=== PATIENT | female | born 1960 | race Caucasian/White ===

== ENCOUNTER 2020-05-19 08:49 | Emergency (ER) | payer MEDICARE ==
[~2020-05-19] VITALS: Ht 167.6 cm; Wt 64.0 kg
[2020-05-19] MEDS ORDERED: ORPHENADRINE CITRATE 60 MG/2 ML VIAL. IM ONE (09:30)
--- NOTE | 2020-05-19 10:10 | RAD ---
CT lumbar spine without contrast dated 05/19/2020. No comparison available. CLINICAL INDICATION: Pain. TECHNIQUE: Contiguous axial imaging of lumbar spine performed with thin cut coronal and sagittal reconstruction. One or more of the following individualized dose reduction techniques were utilized for this examinat ion: 1. Automated exposure control 2. Adjustment of the mA and/or kV according to patient size 3. Use of iterative reconstruction technique. FINDINGS: Sagittal alignment is anatomic. Vertebral body heights are maintained. Posterior elements are intact. No evidence of fracture. Mild endplate hypertrophic changes throughout. There is mild arthropathy of the lower lumbar apophyse al joints. Minimal broad-based bulging at L2-L3, L3-L4, L4-L5 and L5-S1. No focal disc herniation. Th e bony canal and foramen are adequate. Images of the retroperitoneum show mild ectasia of the infrarenal abdominal aorta measuring up to 2.6 cm transverse. There are diffuse atherosclerotic calcifications. Postsurgical changes of the right c olon. IMPRESSION: 1. No evidence of fracture or malalignment. 2. Mild lower lumbar spondylosis. Electronically signed by: Troy Hart MD (05/19/2020 10:08 AM) [id number]
[2020-05-19 10:24] LABS: BASO % 1 % (0-3); EOS # 0.1 x10^3/uL (0.0-0.7); EOS % 2 % (0-3); HEMATOCRIT 38.2 % (36.0-47.0); HEMOGLOBIN 12.5 g/dL (12.0-15.5); LYMPH % 37 % (24-48); MEAN CORPUSCULAR HEMOGLOBIN 31 pg (25-35); MEAN CORPUSCULAR HGB CONC 33 g/dL (31-37); MEAN CORPUSCULAR VOLUME 94 fL (79-100); MONO # 0.4 x10^3/uL (0.0-1.1); MONO % 8 % (0-9); NEUT # 2.8 x10^3uL (1.8-7.7); NEUT % 52 % (31-73); PLATELET COUNT 224 x10^3/uL (140-400); RED BLOOD COUNT 4.07 x10^6/uL (3.50-5.40); RED CELL DISTRIBUTION WIDTH 13.3 % (11.5-14.5); WHITE BLOOD COUNT 5.4 x10^3/uL (4.0-11.0)
[2020-05-19 10:36] LABS: CALCIUM 8.6 mg/dL (8.5-10.1); CREATININE 0.9 mg/dL (0.6-1.0); GFR 63.7; POTASSIUM 3.9 mmol/L (3.5-5.1)
[2020-05-19 10:42] LABS: ALBUMIN/GLOBULIN RATIO 0.9 (1.0-1.7); TOTAL BILIRUBIN 0.1 mg/dL (0.2-1.0); TOTAL PROTEIN 6.3 g/dL (6.4-8.2)
[2020-05-19 11:40] LABS: BILIRUBIN,URINE NEG (NEG); CLARITY,URINE CLEAR; COLOR,URINE STRAW; GLUCOSE,URINE NEG (NEG); NITRITE,URINE NEG (NEG); UROBILINOGEN,URINE 0.2 mg/dL (0.2 mg/dL)
[2020-05-19 11:41] LABS: BACTERIA,URINE FEW /HPF (0-FEW); RBC,URINE OCC /HPF (0-2); SQUAMOUS EPITHELIAL CELL,UR MANY /LPF; WBC,URINE OCC /HPF (0-4)
[2020-05-19] MEDS ORDERED: IOHEXOL 300 MG/ML 75 ML VIAL. IV ONE (11:45)
--- NOTE | 2020-05-19 12:19 | PHYS DOC ---
Past History Past Medical History: No Pertinent History Past Surgical History: Appendectomy, Hysterectomy, Other Additional Past Surgical Histo: Knee surgery, Colon surgery, Elbow surgery. Alcohol Use: None General Adult EDM: Chief Complaint: HIP PAIN HPI: HPI: Patient is a 59-year-old female coming in for left back pain rating down to her left hip and left leg. Describes the pain as burning. Says pain has been present since March and has been steadily getting worse. Is been taking ibuprofen without improvement. Patient states the pain started when she was pushing some heavy carts at her job in [place] when the pain started. It was exacerbated by walking around for most of the day. Denies any bowel or bladder dysfunction, urinary incontinence, fevers, recent weight loss, chills or diaphoresis. Patient states on occasion her leg is felt like it was swollen but the swelling comes and goes. Has not been seen before for this. Denies any history of prior chronic back pain. Denies any paresthesias in her lower extremities. Review of Systems: Review of Systems: All other systems within normal limits except for as noted in the HPI Current Medications: Current Meds: Current Medications Medications (Trade) Dose Ordered Sig/Paulo Start Time Stop Time Status Last Admin Dose Admin Fentanyl Citrate (Fentanyl 2ml Vial) 75 mcg 1X ONCE 05/19/20 11:45 05/19/20 12:00 DC 05/19/20 11:50 75 MCG Iohexol (Omnipaque 300 Mg/ml) 75 ml 1X ONCE 05/19/20 11:45 05/19/20 11:46 DC 05/19/20 11:59 75 ML Orphenadrine Citrate (Norflex) 60 mg 1X ONCE 05/19/20 09:30 05/19/20 10:47 DC 05/19/20 10:40 60 MG Allergies: Allergies: Allergies Coded Allergies Type Severity Reaction Last Updated Verified Sulfa (Sulfonamide Antibiotics) Allergy Unknown 05/19/20 Yes cephalexin Allergy Unknown 05/19/20 Yes ketorolac Allergy Unknown 05/19/20 Yes morphine Allergy Unknown 05/19/20 Yes Physical Exam: PE: Constitutional: Well developed, well nourished, no acute distress, non-toxic appearance. [] HENT: Normocephalic, atraumatic, bilateral external ears normal, nose normal. [] Eyes: PERRLA, conjunctiva normal, no discharge. [] Neck: No rigidity, supple, no stridor. [] Cardiovascular: Regular rate and rhythm, brisk cap refill, palpable DP pulses [] Lungs & Thorax: Non labored symmetric respirations, no tachypnea or respiratory distress [] Abdomen: Soft, nondistended. Skin: Warm, dry, no erythema, no rash. [] Back: No step-offs or deformities, tenderness over left lower back and iliac crest, negative straight leg raise exam. Extremities: No deformities, range of motion grossly intact, no lower extremity edema [] Neurologic: Alert and oriented X 3, no focal deficits noted. [] Psychologic: Affect normal, judgement normal, mood normal. [] Current Patient Data: Labs: Laboratory Tests Test 05/19/20 10:09 05/19/20 11:00 White Blood Count 5.4 x10^3/uL (4.0-11.0) Red Blood Count 4.07 x10^6/uL (3.50-5.40) Hemoglobin 12.5 g/dL (12.0-15.5) Hematocrit 38.2 % (36.0-47.0) Mean Corpuscular Volume 94 fL (79-100) Mean Corpuscular Hemoglobin 31 pg (25-35) Mean Corpuscular Hemoglobin Concent 33 g/dL (31-37) Red Cell Distribution Width 13.3 % (11.5-14.5) Platelet Count 224 x10^3/uL (140-400) Neutrophils (%) (Auto) 52 % (31-73) Lymphocytes (%) (Auto) 37 % (24-48) Monocytes (%) (Auto) 8 % (0-9) Eosinophils (%) (Auto) 2 % (0-3) Basophils (%) (Auto) 1 % (0-3) Neutrophils # (Auto) 2.8 x10^3uL (1.8-7.7) Lymphocytes # (Auto) 2.0 x10^3/uL (1.0-4.8) Monocytes # (Auto) 0.4 x10^3/uL (0.0-1.1) Eosinophils # (Auto) 0.1 x10^3/uL (0.0-0.7) Basophils # (Auto) 0.0 x10^3/uL (0.0-0.2) D-Dimer (Juju) 0.99 mg/L (0.00-0.50) H Sodium Level 141 mmol/L (136-145) Potassium Level 3.9 mmol/L (3.5-5.1) Chloride Level 106 mmol/L (98-107) Carbon Dioxide Level 24 mmol/L (21-32) Anion Gap 11 (6-14) Blood Urea Nitrogen 13 mg/dL (7-20) Creatinine 0.9 mg/dL (0.6-1.0) Estimated GFR (Cockcroft-Gault) 63.7 BUN/Creatinine Ratio 14 (6-20) Glucose Level 90 mg/dL (70-99) Calcium Level 8.6 mg/dL (8.5-10.1) Total Bilirubin 0.1 mg/dL (0.2-1.0) L Aspartate Amino Transferase (AST) 15 U/L (15-37) Alanine Aminotransferase (ALT) 22 U/L (14-59) Alkaline Phosphatase 68 U/L (46-116) Total Protein 6.3 g/dL (6.4-8.2) L Albumin 3.0 g/dL (3.4-5.0) L Albumin/Globulin Ratio 0.9 (1.0-1.7) L Urine Collection Type Void Urine Color Straw Urine Clarity Clear Urine pH 5.5 Urine Specific [place] 1.015 Urine Protein Neg (NEG-TRACE) Urine Glucose (UA) Neg mg/dL (NEG) Urine Ketones (Stick) Neg mg/dL (NEG) Urine Blood Small (NEG) Urine Nitrite Neg (NEG) Urine Bilirubin Neg (NEG) Urine Urobilinogen Dipstick 0.2 mg/dL (0.2 mg/dL) Urine Leukocyte Esterase Neg (NEG) Urine RBC Occ /HPF (0-2) Urine WBC Occ /HPF (0-4) Urine Squamous Epithelial Cells Many /LPF Urine Bacteria Few /HPF (0-FEW) Vital Signs: Vital Signs Date Time Temp Pulse Resp B/P (MAP) Pulse Ox O2 Delivery O2 Flow Rate FiO2 05/19/20 11:50 18 96 05/19/20 08:55 97.7 86 100/62 (75) Room Air EKG: EKG: [] Radiology/Procedures: Radiology/Procedures: CTA abdomen and pelvis dated 05/19/2020. No comparison available. CLINICAL INDICATION: Flank pain. TECHNIQUE: Contiguous axial imaging of the abdomen pelvis performed following the intravenous administration of 78 cc Isovue-370. Study was performed as dedicated CTA with thin cut coronal MIPS 3-D reconstruction. One or more of the following individualized dose reduction techniques were utilized for this examination: 1. Automated exposure control 2. Adjustment of the mA and/or kV according to patient size 3. Use of iterative reconstruction technique FINDINGS: Contrast bolus is adequate. Abdominal aorta is normal in caliber. There is multifocal calcific and soft plaque throughout. There is resultant moderate narrowing of the distal aorta just proximal to the aortic bifurcation. There is also mild narrowing of the bilateral common iliac arteries due to calcific plaquing. Mild narrowing of the bilateral internal iliac artery origins. Celiac artery and SMA are patent. Mild narrowing of the bilateral renal artery origins. RAMÓN is not identified and may be chronically occluded. Liver is homogeneous. No biliary ductal dilatation. Gallbladder unremarkable. Spleen is normal in size. Pancreas, adrenal glands and kidneys are unremarkable. No hydronephrosis. Partially opacified GI tract normal in caliber and contour. No focal bowel wall thickening. Evidence of prior right colon resection. No inflammatory changes in the mesentery. No ascites or lymphadenopathy. Images of pelvis show nondistended urinary bladder. Uterus is surgically absent. No free fluid or pelvic lymphadenopathy. Bone windows show no acute findings. Mild multilevel spondylosis. Limited images of lung bases are clear. IMPRESSION: 1. No evidence of abdominal aortic aneurysm. 2. There is multifocal calcific and soft plaque throughout the abdominal aorta and bilateral iliac vessels. There is moderate grade narrowing of the distal aorta with multifocal mild to moderate narrowing of the bilateral iliac systems. Please see above report for full details. 3. Status post hysterectomy and right colon resection.[] CT lumbar spine without contrast dated 05/19/2020. No comparison available. CLINICAL INDICATION: Pain. TECHNIQUE: Contiguous axial imaging of lumbar spine performed with thin cut coronal and sagittal reconstruction. One or more of the following individualized dose reduction techniques were utilized for this examination: 1. Automated exposure control 2. Adjustment of the mA and/or kV according to patient size 3. Use of iterative reconstruction technique. FINDINGS: Sagittal alignment is anatomic. Vertebral body heights are maintained. Posterior elements are intact. No evidence of fracture. Mild endplate hypertrophic changes throughout. There is mild arthropathy of the lower lumbar apophyseal joints. Minimal broad-based bulging at L2-L3, L3-L4, L4- L5 and L5-S1. No focal disc herniation. The bony canal and foramen are adequate. Images of the retroperitoneum show mild ectasia of the infrarenal abdominal aorta measuring up to 2.6 cm transverse. There are diffuse atherosclerotic calcifications. Postsurgical changes of the right colon. IMPRESSION: 1. No evidence of fracture or malalignment. 2. Mild lower lumbar spondylosis. Heart Score: Risk Factors: Risk Factors: DM, Current or recent (<one month) smoker, HTN, HLP, family history of CAD, obesity. Risk Scores: Score 0 - 3: 2.5% MACE over next 6 weeks - Discharge Home Score 4 - 6: 20.3% MACE over next 6 weeks - Admit for Clinical Observation Score 7 - 10: 72.7% MACE over next 6 weeks - Early Invasive Strategies Course & Med Decision Making: Course & Med Decision Making Pertinent Labs and Imaging studies reviewed. (See chart for details) CT without contrast shows no significant pathology that would account for patient's severe amount of pain. Elevated D-dimer, concern for dissection especially with the increasing pain and intermittent lower extremity edema. CTA does not show any signs of dissection. Discussed follow-up with her primary care for possible MRI to look at soft tissues. [] Gianni Disclaimer: Gianni Disclaimer: This electronic medical record was generated, in whole or in part, using a voice recognition dictation system. Departure Departure: Impression: Primary Impression: Left-sided low back pain with sciatica Disposition: 01 DC HOME SELF CARE/HOMELESS Condition: STABLE Referrals: PCP,NO (PCP) Patient Instructions: Back Pain, Adult Scripts Hydrocodone Bit/Acetaminophen (HYDROCODONE-APAP 5-325 ) 1 Each Tablet 1 TAB PO PRN Q6HRS PRN for PAIN, #15 TAB 0 Refills Prov: HUGO HOWARD MD 05/19/20 Meloxicam (MELOXICAM) 15 Mg Tablet 1 TAB PO DAILY for back pain for 20 Days, #20 TAB 0 Refills Prov: HUGO HOWARD MD 05/19/20 HUGO HOWARD MD May 19, 2020 12:19
--- NOTE | 2020-05-19 12:59 | RAD ---
CTA abdomen and pelvis dated 05/19/2020. No comparison available. CLINICAL INDICATION: Flank pain. TECHNIQUE: Contiguous axial imaging of the abdomen pelvis performed following the intravenous administration of 78 cc Isovue-370. Study was performed as dedicated CTA with thin cut coronal MIPS 3-D reconstruction. One or more of the following individualized dose reduction techniques were utilized for this examinat ion: 1. Automated exposure control 2. Adjustment of the mA and/or kV according to patient size 3. Use of iterative reconstruction technique FINDINGS: Contrast bolus is adequate. Abdominal aorta is normal in caliber. There is multifocal calcific and so ft plaque throughout. There is resultant moderate narrowing of the distal aorta just proximal to the aortic bifurcation. There is also mild narrowing of the bilateral common iliac arteries due to calcif ic plaquing. Mild narrowing of the bilateral internal iliac artery origins. Celiac artery and SMA are patent. Mild narrowing of the bilateral renal artery origins. RAMÓN is not identified and may be chron ically occluded. Liver is homogeneous. No biliary ductal dilatation. Gallbladder unremarkable. Spleen is normal in size. Pancreas, adrenal glands and kidneys are unremarkable. No hydronephrosis. Partially opacified GI tract normal in caliber and contour. No focal bowel wall thickening. Evidence of prior right colon resection. No inflammatory changes in the mesentery. No ascites or lymphadenopat hy. Images of pelvis show nondistended urinary bladder. Uterus is surgically absent. No free fluid or pel simran lymphadenopathy. Bone windows show no acute findings. Mild multilevel spondylosis. Limited images of lung bases are cl ear. IMPRESSION: 1. No evidence of abdominal aortic aneurysm. 2. There is multifocal calcific and soft plaque throughout the abdominal aorta and bilateral iliac ve ssels. There is moderate grade narrowing of the distal aorta with multifocal mild to moderate narrowi ng of the bilateral iliac systems. Please see above report for full details. 3. Status post hysterectomy and right colon resection. Electronically signed by: Troy Hart MD (05/19/2020 12:57 PM) [id number]
[2020-05-19] MEDS ORDERED: MELO15TA23 PO (13:39)
[2020-05-19] MEDS ORDERED: HYDR-2155 PO (13:39)
[2020-05-19 14:00] VITALS: BP 108/73
== END 2020-05-19 14:05 | disposition home or self-care (01) ==
LOC: ER 08:49
DX: M54.42 Lumbago with sciatica, left side (principal); R60.0 Localized edema; Z90.89 Acquired absence of other organs; Z90.710 Acquired absence of both cervix and uterus; Z98.890 Other specified postprocedural states; Z88.2 Allergy status to sulfonamides; Z88.6 Allergy status to analgesic agent; Z88.1 Allergy status to other antibiotic agents; Z88.8 Allergy status to other drugs, medicaments and biological substances
CPT/HCPCS: 36415; 72131; 74174; 80053; 81001; 85025; 85379; 96372; 96374; 96376; 99285; J2360; J3010; Q9967